=== PATIENT | female | born 1975 ===

== ENCOUNTER 2017-05-14 14:53 | Emergency (ER) | payer BC ==
[2017-05-14] MEDS ORDERED: Ketorolac Tromethamine 30 MG/ML VIAL ONE (15:15)
[2017-05-14 15:23] LABS: Bilirubin Negative (Negative); Blood, Urine Negative (Negative); Glucose, Urine (Dipstick) Negative (Negative); Ketone, Urine Negative (Negative); Nitrite Negative (Negative); Protein, Urine (Dipstick) Negative (Neg-Trace); Urobilinogen 0.2 mg/dL (0.2-1.0)
[2017-05-14] MEDS ORDERED: Ondansetron HCl/PF 4 MG/2 ML Vial ONE (15:26)
[2017-05-14 15:37] LABS: #Lymphocytes 0.9 thou/uL (1.20-3.40); #Monocytes 0.5 thou/uL (0.11-0.59); #Neutrophils 7.1 thou/uL (1.40-6.50); %Basophils 0.2 % (0.0-1.0); %Eosinophils 0.3 % (0.0-10.0); %Lymphocytes 10.8 % (21.0-51.0); %Monocytes 5.8 % (0.0-10.0); Hematocrit 39.7 % (36.0-47.0); Mean Platelet Volume 7.2 fL (7.4-10.4); Red Blood Cell (RBC) Count 4.21 mill/uL (4.20-5.40); White Blood Cell (WBC) Count 8.6 thou/uL (4.8-10.8)
--- NOTE | 2017-05-14 16:12 | CT ---
EXAM: CT ABDOMEN WITHOUT CONTRAST CT PELVIS WITHOUT CONTRAST 05/14/17 HISTORY: Pain. Right flank pain. Urinary urgency. COMPARISON: None. TECHNIQUE: An abdomen and pelvic CT is performed without contrast. Coronal reformatted images are submitted for interpretation. FINDINGS: ABDOMEN CT: Lung bases are clear. Heart size is normal. No significant pericardial fluid. The visualized aorta h as a normal caliber. No periaortic fat stranding. Symmetric attenuation of the psoas muscles. Gallbladder is surgically absent. Limited evaluation of the solid organs due to lack of IV contrast. Liver, spleen, pancreas and adren al glands are grossly unremarkable. No gastrohepatic, retrocrural or periportal lymphadenopathy. No mesenteric mass, lymphadenopathy, free air or free fluid. Limited evaluation of the alimentary canal due to lack of oral contrast. No evidence of bowel obstru ction. Ileocecal junction is normal. Normal caliber appendix emanating from the cecal apex. Fecal ma terial in a nondistended, nondilated, colon. There is mild asymmetric fullness of the right renal pelvis. Mild asymmetric prominence of the right ureter is noted. There is no evidence of nephrolithiasis or ureterolithiasis. The left intra and ex tra-renal collecting system is unremarkable. PELVIC CT: The uterus and adnexa are grossly unremarkable. No pelvic mass, lymphadenopathy, free air or free fl uid. In the right aspect of the urinary bladder, there is a 4 mm calcification likely representing a rece ntly passed calculus. There are no osteoblastic or osteolytic lesions. IMPRESSION: Mild right sided obstructive uropathy secondary to recently passed calculus that is now in the right aspect of the urinary bladder. POS: АННА
[2017-05-14 16:13] LABS: ALT (SGPT) 13 U/L (8-55); AST (SGOT) 19 U/L (5-34); Alkaline Phosphatase 55 U/L (40-150); Anion Gap 15 mmol/L (10-20); BUN (Urea Nitrogen) 11 mg/dL (7.0-18.7); Bilirubin, Total 1.3 mg/dL (0.2-1.2); Calc. Creatinine Clearance 0 mL/min (70-130); Calcium 9.7 mg/dL (7.8-10.44); Carbon Dioxide 24 mmol/L (22-29); Chloride 99 mmol/L (98-107); Estimated GFR-MDRD 67; Globulin 3.3 g/dL (2.4-3.5); Protein, Total 8.1 g/dL (6.0-8.3)
== END 2017-05-14 17:48 | disposition home or self-care (01) ==
LOC: ERS 14:53
DX: N20.1 Calculus of ureter (principal)
CPT/HCPCS: 74176; 80053; 81003; 81025; 85025; 96361; 96374; 96375; J1170; J1885; J2405

== ENCOUNTER 2019-03-29 12:54 | Outpatient (CLI) | payer BC ==
--- NOTE | 2019-03-29 13:55 | CT ---
CT Abdomen Pelvis W Con HISTORY: Right upper quadrant and lower pelvic pain. History of endometriosis. COMPARISON: 05/14/2017 exam. FINDINGS: The lung bases are clear of any infiltrative process. The liver spleen and pancreas regions appear unremarkable. The gallbladder has been removed. Right an d left adrenal glands and right and left kidneys are normal is no significant periaortic or mesenteric adenopathy. CT of pelvis performed with contrast enhancement: There are follicles seen involving both adnexa. The re is trace free fluid in the cul-de-sac and right adnexal region, the appendix is difficult to definitively identify but I see no evidence for appendicitis. No significant pelvic lymphadenopathy o r mass. No significant bony findings. IMPRESSION: Follicles involving both adnexa with trace free fluid present. Otherwise unremarkable exa m.
== END 2019-03-29 12:55 | disposition home or self-care (01) ==
LOC: BICCT 12:54
PROVIDERS: ATTEND Family Medicine
DX: R10.13 Epigastric pain (principal)
CPT/HCPCS: 74177

== ENCOUNTER 2025-06-05 13:59 | Emergency (ER) | payer BC ==
[2025-06-05] MEDS ORDERED: Ondansetron PF 4 MG/2 ML Vial ONE (14:25)
[2025-06-05 14:33] LABS: #Basophils Less than 0.03 10x3/uL (0.0-0.2); #Eosinophils Less than 0.03 10x3/uL (0.0-0.7); #Monocytes 0.37 10x3/uL (0.11-0.59); #Neutrophils 6.07 10x3/uL (1.40-6.50); %Basophils 0.3 % (0.0-1.0); %Eosinophils 0.0 % (0.0-10.0); %Lymphocytes 15.4 % (21.0-51.0); %Monocytes 4.8 % (0.0-10.0); %Neutrophils 79.2 % (42.0-75.0); Hematocrit 36.3 % (36.0-47.0); Hemoglobin 12.5 g/dL (12.0-16.0); Mean Corpuscular Hemoglobin 29.7 pg (27.0-31.0); Mean Corpuscular Volume 86.2 fL (78.0-98.0); Platelet Count 212 10x3/uL (130-400); Red Blood Cell (RBC) Count 4.21 mill/uL (4.20-5.40); White Blood Cell (WBC) Count 7.66 10x3/uL (4.8-10.8)
[2025-06-05 14:39] LABS: Bacteria/HPF None Seen HPF (None Seen); CAUTI Indications for Culture Pelvic or flank pain; Glucose, Urine (Dipstick) Normal (Negative); Leukocyte Negative Leu/uL (Negative); Protein, Urine (Dipstick) Negative (Neg-Trace); RBC/HPF 0-3 HPF (0-3); Specific Gravity, Urine 1.003 (1.002-1.036); WBC/HPF None Seen HPF (0-3)
[2025-06-05 14:42] LABS: Urine Culture Reflex No No
[2025-06-05 14:49] LABS: ALT (SGPT) 10 U/L (Less than 34); AST (SGOT) 29 U/L (11-34); Albumin 4.5 g/dL (3.1-4.5); Alkaline Phosphatase 81 U/L (40-110); Anion Gap 15 mmol/L (10-20); BUN (Urea Nitrogen) 7 mg/dL (9.8-20.1); Bilirubin, Total 1.0 mg/dL (0.3-1.2); Calc. Creatinine Clearance 0 mL/min (70-130); Calcium 9.5 mg/dL (7.8-10.44); Carbon Dioxide 21 mmol/L (22-29); Chloride 104 mmol/L (98-107); Globulin 3.0 g/dL (2.4-3.5); Glucose 112 mg/dL (70-105); Lipase 17 U/L (8-78); Potassium 3.7 mmol/L (3.5-5.1); Sodium 136 mmol/L (136-145)
[2025-06-05 15:23] LABS: BHCG - Serum Negative (NEGATIVE); Pregs Control Background? CLEAR/WHITE (CLR/WHITE); Pregs Control Bar Appear? YES (CONTROL BAR)
== END 2025-06-05 17:33 | disposition home or self-care (01) ==
LOC: ERS 13:59
DX: N13.2 Hydronephrosis with renal and ureteral calculous obstruction (principal)
CPT/HCPCS: 74176; 80053; 81001; 83690; 84703; 85025; 96374; 96375; J2270; J2405